=== PATIENT | male | born 1965 | race Two or more races ===

== ENCOUNTER 2020-12-05 23:32 | Emergency (ER) | payer MEDICAID ==
[~2020-12-05] VITALS: Ht 167.6 cm; Wt 65.8 kg
--- NOTE | 2020-12-05 23:41 | NUR ---
PATIENT TO CT VIA [facility]
--- NOTE | 2020-12-05 23:59 | NUR ---
PATIENT RETURNED FROM CT
--- NOTE | 2020-12-06 00:52 | NUR ---
Cherelle kinsey in EDM - 12/06/20 at 0052 by MUKESH Patient discharged to home in stable condition. Written and verbal after care instructions given. Patient verbalizes understanding of instruction.
--- NOTE | 2020-12-06 00:52 | NUR ---
Patient does not wish to proceed with medical care recommended by Dr. Alanis. Patient given information related to possible complications, up to and including , which could occur as a result of leaving the hospital at this time. Patient verbalizes understanding of risks involved due to leaving against medical advice. Patient has signed AMA form.
[2020-12-06 00:53] VITALS: BP 123/72
== END 2020-12-06 00:53 | disposition left against medical advice (07) ==
LOC: ER 23:35
DX: S01.111A Laceration without foreign body of right eyelid and periocular area, initial encounter (principal); S09.8XXA Other specified injuries of head, initial encounter; V49.49XA Driver injured in collision with other motor vehicles in traffic accident, initial encounter; Y93.89 Activity, other specified; Y92.413 State road as the place of occurrence of the external cause; Y99.8 Other external cause status
CPT/HCPCS: 70450-TC; 70480-TC

== ENCOUNTER 2021-08-03 12:29 | Inpatient (IN) | payer MEDICAID ==
[~2021-08-03] VITALS: Ht 167.6 cm; Wt 61.2 kg
--- NOTE | 2021-08-03 13:55 | NUR ---
CALLED TO TRIAGE,NO ANSWER
--- NOTE | 2021-08-03 14:29 | NUR ---
TO ER BED 1,NO APPARENT CHANGE IN CONDITION
[2021-08-03] MEDS ORDERED: AMOX1TAB16 PO (15:00)
[2021-08-03] MEDS ORDERED: TRAZ-252 PO (15:00)
[2021-08-03] MEDS ORDERED: MORPHINE SULFATE INJ 2 MG/ML DISP.SYRIN IV ONE (15:00)
[2021-08-03] MEDS ORDERED: PIPERACILLIN /TAZOBACTAM 3.375 G in IV D5W 50 ML IV ONE (15:00)
[2021-08-03] MEDS ORDERED: CLON1TAB12 PO (15:00)
[2021-08-03 15:09] LABS: BASOPHILS % (AUTO) 0.3 % (0.0-2.0); EOSINOPHILS % (AUTO) 0.7 % (0.0-6.0); HEMATOCRIT 39 % (39-51); HEMOGLOBIN 13.2 g/dL (13.5-17.5); LYMPHOCYTES # (AUTO) 0.9 K/uL (0.8-4.8); LYMPHOCYTES % (AUTO) 18.8 % (20.0-44.0); MEAN CORPUSCULAR HGB CONC 34 g/dl (31.0-36.0); MEAN CORPUSCULAR VOLUME 103 fL (80-96); MONOCYTES # (AUTO) 0.3 K/uL (0.1-1.30); MONOCYTES % (AUTO) 6.7 % (2.0-12.0); NEUTROPHILS # (AUTO) 3.6 K/uL (1.8-8.9); NEUTROPHILS % (AUTO) 73.5 % (43.0-81.0); PLATELET COUNT (AUTO) 249 K/uL (150-450); RED BLOOD CELL COUNT(AUTO) 3.81 MIL/uL (4.5-6.0)
[2021-08-03] MEDS ORDERED: MORPHINE SULFATE INJ 4 MG/ML DISP.SYRIN ONE (15:17)
[2021-08-03 15:58] LABS: CALCIUM, SERUM 9.1 mg/dL (8.5-10.1); CREATININE 0.7 mg/dL (0.6-1.3); POTASSIUM 4.5 mmol/L (3.5-5.1)
[2021-08-03] MEDS ORDERED: clonazePAM 1 MG TABLET PO PRN (17:30)
[2021-08-03] MEDS ORDERED: ONDANSETRON HCL/PF 4 MG/2 ML VIAL IVP PRN (17:30)
[2021-08-03] MEDS ORDERED: MORPHINE SULFATE INJ 2 MG/ML DISP.SYRIN IV PRN (17:30)
[2021-08-03] MEDS ORDERED: IV NS 0.9% 1,000 ML IV PRN (17:30)
[2021-08-03] MEDS ORDERED: hydrALAZINE HCL IV 20 MG VIAL IV PRN (17:30)
[2021-08-03] MEDS ORDERED: ACETAMINOPHEN 325 MG TABLET PO PRN (17:30)
[2021-08-03] MEDS ORDERED: ENOXAPARIN SODIUM 40 MG/0.4 ML DISP.SYRIN SQ SCH (17:30)
[2021-08-03] MEDS: METRONIDAZOLE 500 MG TABLET PO SCH (17:30)
[2021-08-03] MEDS ORDERED: VANCOMYCIN HCL 1.25 GM in IV D5W 260 ML IV SCH (17:30)
--- NOTE | 2021-08-03 18:13 | NUR ---
COVID ANTIGEN SWAB OBTAINED AND SENT TO LAB
[2021-08-03] MEDS ORDERED: VANCOMYCIN 1 GM in IV D5W 250ml IV SCH (18:30)
--- NOTE | 2021-08-03 18:44 | NUR ---
BED ASSIGNED 315-2
[2021-08-03] MEDS: CEFTRIAXONE 1 G in IV D5W 50 ML IV SCH (18:45)
--- NOTE | 2021-08-03 19:00 | NUR ---
PT BIBSELF AT 1405 C/O WORSENING LEFT HAND CELLULITIS INSPITE OF TAKING AUGMENTIN SINCE A CAT BIT HIS HAND AT WORK 07/29/2021. SWELLING AND REDNESS TO LEFT INDEX FINGER NOTED. PT A/OX4. TOLERATING R/A WELL WITH NO SOB. R AC #20G S/L; PATENT AND INTACT
[2021-08-03] MEDS ORDERED: ENOXAPARIN SODIUM 40 MG/0.4 ML DISP.SYRIN SQ ONE (19:06)
[2021-08-03] MEDS ORDERED: METRONIDAZOLE 500 MG TABLET ONE (19:07)
[2021-08-03] MEDS: VANCOMYCIN 1 GM in IV D5W 250ml IV SCH (19:17)
--- NOTE | 2021-08-03 19:49 | NUR ---
CALLED 3W TO GIVE REPORT; WILL TRY AGAIN LATER
--- NOTE | 2021-08-03 20:25 | NUR ---
GAVE REPORT TO BRYAN MAYO FOR MARY BETH
--- NOTE | 2021-08-03 20:43 | NUR ---
PATIENT TRANSFERRED TO WITH MEDS. ALL BELONGINGS WITH PT. VSS
--- NOTE | 2021-08-03 20:50 | NUR ---
ADMISSION 55 Y/O male A/O x4. Skin checked done, left 2nd finger redness and swelling, photo in the chart. No pressure injury. Abie patient to room, unit, staff. Denies pain at this time. Call light within reach.
[2021-08-03 20:57] VITALS: BP 142/81
[2021-08-03 21:00] VITALS: BP 142/81
[2021-08-03] MEDS ORDERED: TRAZODONE 50 MG TABLET PO SCH (22:00)
[2021-08-04] MEDS: VANCOMYCIN 1 GM in IV D5W 250ml IV SCH (03:21)
--- NOTE | 2021-08-04 05:44 | NUR ---
END OF SHIFT REPORT Patient is A/O x4. Ambulatory, independent. Left index finger cellulitis. No c/o pain at this time. On IV abx. Afebrile. Ongoing IVF. Maintaining Oxygenation at 98% on room air. No acute respiratory distress. Pending MRI left wrist. Will endorse to oncoming RN.
[2021-08-04 07:27] LABS: BASOPHILS % (AUTO) 0.7 % (0.0-2.0); EOSINOPHILS % (AUTO) 4.4 % (0.0-6.0); HEMATOCRIT 35 % (39-51); HEMOGLOBIN 12.1 g/dL (13.5-17.5); LYMPHOCYTES # (AUTO) 1.4 K/uL (0.8-4.8); LYMPHOCYTES % (AUTO) 33.4 % (20.0-44.0); MEAN CORPUSCULAR HGB CONC 34 g/dl (31.0-36.0); MEAN CORPUSCULAR VOLUME 102 fL (80-96); MONOCYTES # (AUTO) 0.5 K/uL (0.1-1.30); MONOCYTES % (AUTO) 11.6 % (2.0-12.0); NEUTROPHILS # (AUTO) 2.1 K/uL (1.8-8.9); NEUTROPHILS % (AUTO) 49.9 % (43.0-81.0); PLATELET COUNT (AUTO) 239 K/uL (150-450); RED BLOOD CELL COUNT(AUTO) 3.46 MIL/uL (4.5-6.0); WHITE BLOOD COUNT (AUTO) 4.1 K/uL (4.3-11.0)
[2021-08-04 07:54] LABS: BILIRUBIN,TOTAL 0.3 mg/dL (0.2-1.0); CALCIUM, SERUM 8.4 mg/dL (8.5-10.1); CREATININE 0.8 mg/dL (0.6-1.3); MAGNESIUM 2.3 mg/dL (1.8-2.4); PHOSPHORUS 3.3 mg/dL (2.5-4.9); POTASSIUM 3.9 mmol/L (3.5-5.1); TOTAL PROTEIN, SERUM 6.8 g/dL (6.4-8.2)
[2021-08-04 08:00] VITALS: BP 143/83
--- NOTE | 2021-08-04 09:23 | NUR ---
WOUND CARE CONSULT: PT PRESENTS WITH REDNESS, SWELLING, TENDERNESS AND DRY WOUND TO LEFT INDEX FINGER, PRESENT ON ADMISSION. RECOMMENDATIONS MADE FOR SKIN PROTECTION AND WOUND CARE. DISCUSSED WITH NURSING STAFF. SURGICAL CONSULT CALLED TO DR CAROLYN GRAY MD IN AGREEMENT WITH PLAN OF CARE.
[2021-08-04] MEDS ORDERED: BACITRACIN/POLYMYXIN B 15 GM TUBE TP SCH (09:30)
[2021-08-04] MEDS: METRONIDAZOLE 500 MG TABLET PO SCH (09:51)
[2021-08-04] MEDS: CEFTRIAXONE 1 G in IV D5W 50 ML IV SCH (09:52)
[2021-08-04] MEDS ORDERED: SULF1TAB48 PO (10:14)
--- NOTE | 2021-08-04 12:00 | NUR ---
Pt discharged in stable condition, VSS, no acute distress noted. Pt given discharge instructions verbalized understanding. Pt will be picking up meds. Pt's IV removed and applied pressure dressing. Pt's belongings accounted for and with pt. Pt ambulatory and left unit left in private vehicle.
== END 2021-08-04 12:00 | disposition home or self-care (01) | DRG 344 ==
LOC: ER 12:35 → MED 18:52
PROVIDERS: ADMIT Internal Medicine; ATTEND Internal Medicine
DX: M86.8X4 Other osteomyelitis, hand (principal); L03.113 Cellulitis of right upper limb; S61.251A Open bite of left index finger without damage to nail, initial encounter; W55.01XA Bitten by cat, initial encounter; Y92.89 Other specified places as the place of occurrence of the external cause
CPT/HCPCS: 36415; 80048-TC; 80053-TC; 83605-TC; 83735-TC; 84100-TC; 85025-TC; 85652-TC; 85730-TC; 86140-TC; 87040-TC; 87081-TC; G0378; J0696; J1650; J2270; J2543; J3370; J7030; J7060